=== PATIENT | male | born 1975 | race Caucasian/White ===

== ENCOUNTER 2017-08-31 11:39 | Emergency (ER) | payer OTHER ==
[~2017-08-31] VITALS: Ht 175.3 cm; Wt 82.7 kg
[~2017-08-31 11:39] MED LIST: IBUP-103 PO
[2017-08-31 11:50] VITALS: TEMP 36.7; Ht 175.3 cm; Wt 82.7 kg
[2017-08-31] MEDS ORDERED: PROPARACAINE HCL 0.5% OP SOLN 15 ML BTL OP STA (11:52)
[2017-08-31] MEDS ORDERED: ARTIFICIAL TEARS OP OINT 3.5 GM TUBE OP ONE (13:00)
[2017-08-31 13:06] VITALS: BP 143/88; PULSE 80; O2SAT 98
--- NOTE | 2017-08-31 17:05 | EMERGENCY ROOM VISIT NOTE ---
History First contact with patient: 11:52 Chief Complaint: EYE ASSESSMENT Stated Complaint: R EYE - W/C History of Present Illness The patient is a 42 year old male who presents to the Emergency Room with complaints of getting soldering metal in his eye at work. At approximately 11 AM, the patient was working under a pipe when a piece a solder dropped into his eye. The patient peeled the metal out of his eye, and now continues to complain of discomfort, tearing, burning and redness of the eye. He rates his discomfort a 5 out of 10. Tetanus immunization is up-to-date. The patient has had metal in his eye before. Review of Systems 10 system review was performed and was negative except for pertinent positives and negatives as indicated in history of present illness Past Medical/Surgical History Medical Problems: (1) Corneal Foreign Body (2) Lumbago (3) Tobacco Use Disorder Family History Unremarkable Social History Smoking Status: Current Every Day Smoker Alcohol Use: occasionally Marital Status: Housing Status: lives with family Current/Historical Medications No Active Prescriptions or Reported Meds Physical Exam Vital Signs Date Time Temp Pulse Resp B/P (MAP) Pulse Ox O2 Delivery O2 Flow Rate FiO2 08/31/17 13:06 80 143/88 98 08/31/17 11:50 36.7 84 20 137/90 98 Room Air Right Eye Acuity: 20/20 Left Eye Acuity: 20/20 Physical Exam CONSTITUTIONAL: Healthy and well nourished. Patient does not appear in any acute distress. HEENT: Normocephalic, atraumatic. Pupils equal, round and reactive. Examination of the right eye shows mild conjunctival injection without significant tearing or bloody drainage. EOMs intact. NECK: Full active range of motion without discomfort. INTEGUMENTARY: No rash or other significant dermatologic conditions noted. NEUROLOGIC: Cranial nerves II-XII grossly intact. No focal neurologic deficits noted. Medical Decision & Procedures Medications Administered Medications (Trade) Dose Ordered Sig/Deangelo Route Start Time Stop Time Status Last Admin Dose Admin Proparacaine HCl (Alcaine 0.5% Oph Soln) 2 drops NOW STAT OP 08/31/17 11:52 08/31/17 11:54 DC 08/31/17 12:02 2 DROPS Artificial Tears (Lacri-Lube Oph Oint) 1 appln NOW ONCE OP 08/31/17 13:00 08/31/17 13:01 DC 08/31/17 12:55 1 APPLN Procedure Slit lamp exam was performed after instilling 2 Alcaine drops in the right eye. This completely resolved the patient's discomfort. Examination shows a residual metallic foreign body near the periphery of the cornea at 4:00. There is no foreign body within the scleral region. Lower and upper eyelids were everted to show no additional retained foreign bodies. Using an [place] brush, the metal was safely debrided and removed with a sterile swab. Fluorescein exam did not show any additional abrasions. Negative Joya test. ED Course Patient history and physical exam were performed. Nurse's notes were reviewed. Vital signs were reviewed and normal. Slit lamp exam shows evidence for a metallic foreign body within the periphery of the right cornea. The metal was removed successfully using an [place] brush. Fluorescein exam did not show any additional corneal abrasions. Negative Joya test was demonstrated. The patient was dispensed Lacri-Lube for comfort. The patient was also encouraged to intermittently apply a cool compress, and take ibuprofen and Tylenol in alternating fashion if needed for additional pain relief. She was instructed to return, or follow-up with an engineering patternmaker, if symptoms are not improving within the next 48 hours. He was also instructed to return for any progressively worsening pain, change in vision or other concerning symptoms. The patient was happy with plan of care, voiced understanding of all discharge instructions, and denied any pain at the conclusion of my exam. Medical Decision Medication Reconcilliation Current Medication List: was personally reviewed by or Blood Pressure Screening Patient's blood pressure: Normal blood pressure Impression Primary Impression: Corneal foreign body Additional Impression: Work related injury Departure Information Dispostion Home / Self-Care Condition GOOD Prescriptions No Active Prescriptions or Reported Meds Forms HOME CARE DOCUMENTATION FORM, IMPORTANT VISIT INFORMATION Patient Instructions My [facility] Additional Instructions Use Lacri-Lube as needed for comfort. Intermittently apply a cool compress to the eye for additional relief. Ibuprofen or Tylenol if needed for pain. Return to the emergency department if symptoms are not improving within 48 hours , or if symptoms significantly worsen. Problem Qualifiers Primary Impression: Corneal foreign body Encounter type: initial encounter Laterality: right Qualified Codes: T15.01XA - Foreign body in cornea, right eye, initial encounter
== END 2017-08-31 13:08 | disposition home or self-care (01) ==
LOC: C.EDB 11:40 → C.EDD 13:08
DX: T15.01XA Foreign body in cornea, right eye, initial encounter (principal); X18.XXXA Contact with other hot metals, initial encounter; Y99.0 Civilian activity done for income or pay; M54.5 Low back pain; F17.200 Nicotine dependence, unspecified, uncomplicated

== ENCOUNTER 2017-11-18 14:08 | Emergency (ER) | payer BC, OTHER ==
[~2017-11-18] VITALS: Ht 172.7 cm; Wt 81.1 kg
[2017-11-18 14:17] VITALS: TEMP 36.6; Ht 172.7 cm; Wt 81.1 kg
--- NOTE | 2017-11-18 14:51 | DIAGNOSTIC IMAGING REPORT ---
R KNEE 3 VIEWS CLINICAL HISTORY: 42 years-old Male presenting with R knee injury. TECHNIQUE: Frontal, sunrise, and lateral views of the right knee were obtained. COMPARISON: None. FINDINGS: Knee joint congruent. No acute fracture or malalignment. No advanced degenerative change. No radiographic soft tissue abnormality. IMPRESSION: No acute osseous injury. Electronically signed by: Ruiz Barraza M.D. 11/18/2017 2:50 PM Dictated Date/Time: 11/18/2017 2:49 PM
[2017-11-18 15:48] VITALS: BP 136/89; PULSE 67; O2SAT 97
--- NOTE | 2017-11-18 15:57 | EMERGENCY ROOM VISIT NOTE ---
History First contact with patient: 14:22 Chief Complaint: KNEEPAIN Stated Complaint: KNEE PAIN History of Present Illness The patient is a 42 year old male who presents to the Emergency Room with complaints of a twisting injury to the knee yesterday, resulting in persistent knee pain. The patient denies any obvious instability, clicking or locking of the knee. He does report going to [facility] a few months ago with any problems, otherwise denies any other prior knee injuries. The patient rates his discomfort a 3 out of 10 with weightbearing. He denies any paresthesias or numbness of the right lower extremity. Review of Systems 10 system review was performed and was negative except for pertinent positives and negatives as indicated in history of present illness Past Medical/Surgical History Medical Problems: (1) Corneal Foreign Body (2) Lumbago (3) Tobacco Use Disorder Surgical Problems: (1) No history of previous surgery Family History Not known due to adoption Social History Smoking Status: Current Every Day Smoker Alcohol Use: occasionally Marital Status: Housing Status: lives with family Occupation Status: employed Current/Historical Medications No Active Prescriptions or Reported Meds Physical Exam Vital Signs Date Time Temp Pulse Resp B/P (MAP) Pulse Ox O2 Delivery O2 Flow Rate FiO2 11/18/17 15:48 67 16 136/89 97 11/18/17 14:17 36.6 78 18 137/87 97 Room Air Physical Exam CONSTITUTIONAL: Healthy and well nourished. Alert and oriented X 3 with positive affect. Patient does not appear in any acute distress. HEENT: Normocephalic, atraumatic. Pupils equal, round and reactive. NECK: Full active range of motion without discomfort. MUSCULOSKELETAL: Examination of the right knee does not show any soft tissue edema or ecchymosis. The patient is tender over the medial collateral ligament complex. He has worsened pain with valgus stress on the knee at 30 of flexion , as opposed to at full extension. No joint effusion noted, otherwise the patient has full active range of motion without obvious discomfort or crepitance. Negative anterior draw, negative posterior draw. Pedal pulses are intact. INTEGUMENTARY: No rash or other significant dermatologic conditions noted. NEUROLOGIC: Right lower extremity is sensory intact. Medical Decision & Procedures ER Provider Diagnostic Interpretation: My interpretation of right knee x-rays does not show any obvious fractures, dislocation or joint effusion. Radiologist report is as follows: R KNEE 3 VIEWS CLINICAL HISTORY: 42 years-old Male presenting with R knee injury. TECHNIQUE: Frontal, sunrise, and lateral views of the right knee were obtained. COMPARISON: None. FINDINGS: Knee joint congruent. No acute fracture or malalignment. No advanced degenerative change. No radiographic soft tissue abnormality. IMPRESSION: No acute osseous injury. ED Course Patient history and physical exam were performed. Nurse's notes were reviewed. Vital signs were reviewed and were normal. The patient refused any analgesics on initial exam. X-rays of the right knee were normal. Clinical exam is consistent with a mild MCL sprain. A knee immobilizer and crutches were applied. The patient was encouraged to ice and elevate the knee for swelling and pain. Ibuprofen or Tylenol if needed for additional pain relief. The patient will follow up with [facility] for further reevaluation and management. The patient was happy with plan of care, voiced understanding of all discharge instructions, and rated his discomfort a 3 out of 10 at the time of discharge. Medical Decision Medication Reconcilliation Current Medication List: was personally reviewed by me Blood Pressure Screening Patient's blood pressure: Normal blood pressure Impression Primary Impression: Sprain of medial collateral ligament of right knee Departure Information Prescriptions No Active Prescriptions or Reported Meds Referrals Janine Gomez M.D. (PCP) Patient Instructions My [facility] Problem Qualifiers Primary Impression: Sprain of medial collateral ligament of right knee Encounter type: initial encounter Qualified Codes: S83.411A - Sprain of medial collateral ligament of right knee, initial encounter
== END 2017-11-18 15:49 | disposition home or self-care (01) ==
LOC: C.EDB 14:08 → C.EDD 15:49
DX: S83.411A Sprain of medial collateral ligament of right knee, initial encounter (principal); X50.1XXA Overexertion from prolonged static or awkward postures, initial encounter; F17.210 Nicotine dependence, cigarettes, uncomplicated